=== PATIENT | female | born 1985 | race Caucasian/White ===

== ENCOUNTER 2017-05-26 14:59 | Emergency (ER) | payer MEDICAID ==
[~2017-05-26] VITALS: Ht 154.9 cm; Wt 71.2 kg
[2017-05-26 15:00] VITALS: BP_SYST 116
[2017-05-26 15:30] VITALS: BP_SYST 116
== END 2017-05-26 15:30 | disposition home or self-care (01) ==
LOC: SED 14:59
DX: Z02.89 Encounter for other administrative examinations (principal); Z98.51 Tubal ligation status; Z90.710 Acquired absence of both cervix and uterus
CPT/HCPCS: 99283